=== PATIENT | male | born 1950 | race Caucasian/White ===

== ENCOUNTER 2016-08-02 09:39 | Inpatient (IN) | payer OTHER ==
[~2016-08-02] VITALS: Ht 180.3 cm; Wt 110.3 kg
[~2016-08-02 09:39] MED LIST: ADVAIR DISKU1 INH; AZITHROMYCIN250 MG PO; FUROSEMIDE20 MG PO; METOPROLOL SUCC50 MG PO; MICRO-K 10 EQU10 MEQ PO; O2; OMEPRAZOLE20 MG PO; PREDNISONE20 MG PO; PRINIVIL5 MG PO; TOPROL XL100 MG PO; VENTOLIN HFA IN
--- NOTE | 2016-08-02 11:21 | DIAGNOSTIC IMAGING REPORT ---
PROCEDURE: XR CHEST 2 VIEW INDICATION: SHORTNESS OF BREATH TECHNIQUE: PA and lateral views. COMPARISON: Chest 08/21/2015, chest CT 08/21/2015 FINDINGS: There is a large area of increased parenchymal density at the left lung base with findings suggesting underlying old rib fractures or deformities. Possible new right lower lobe infiltrate. This area was obscured by wires on the previous chest x-ray. Mild cardiomegaly. Mediastinum is normal. The rest of the thorax is normal. IMPRESSION: 1. Large area of parenchymal dense the left lung base with probable rib deformities. While this could represent pneumonia, consider underlying mass or post-traumatic diaphragmatic hernia. 2. No change in the left lung from Chest x-ray and chest CT 08/21/2015 3. Possible new right lower lobe infiltrate. 3. Findings discussed with Dr. Nik Currie
--- NOTE | 2016-08-02 14:21 | DIAGNOSTIC IMAGING REPORT ---
PROCEDURE: CTA THORAX WITH CONTRAST INDICATION: ELEVATED D-DIMER., initial encounter TECHNIQUE: 80 ml of Isovue 370 was injected intravenously and axial images were obtained of the entire thorax with 3D sagittal and coronal MIP reconstructions. COMPARISON: Chest x-ray 08/02/2016 CTA thorax 08/21/2015 FINDINGS: No evidence of pulmonary emboli, aortic dissection or aneurysm. There is no change in the 12 x 12 x 6 cm partially calcified pleural-based density in the left posterior lung base. There are multiple old left rib fractures. There is mild lingular and left lower lobe scarring. No adenopathy or effusion. There is some lipoma ptosis. Heart size is normal. Liver contour irregularity suggestive of cirrhosis. Calcified hepatic and splenic granulomas. Mild degenerative changes of the spine IMPRESSION: 1. No evidence of pulmonary emboli 2. Multiple old left rib fractures with a stable 12 x 12 x 6 cm partially calcified mass in the left posterior lung base. This suggests an old organized hematoma. Malignant mass is unlikely. 3. Liver morphology suggestive of cirrhosis 4. Results discussed Dr. Currie
--- NOTE | 2016-08-02 15:02 | ED ORDER SUMMARY ---
..... Patient: OSMANY COLLAZO OrderSheet [facility] VisitID: [id number] [place] [address] 66y, M Registration Date/Time: 08/02/2016 ORDER SHEET Weight: 113.3 kg (stated) Allergies: No Known Drug Allergy GENERAL ORDERS: Blood Culture (No) (N/A) Urgent (10:08/02/2016 Yahaira LIZAMA) (Ack 10:18 TBergley) (11:08 EHassan R.N.) Chest 2V Urgent (10:08/02/2016 Yahaira LIZAMA) (Ack 10:18 TBergley) (10:50 EHassan R.N.) [employer] Line Worker (Continuous) (10:08/02/2016 Yahaira LIZAMA) (Ack 10:18 TBergley) (10:43 LMuller) Rapid Influenza Screen (Nasal Pharyngeal) (swab) Urgent (10:08/02/2016 Yahaira LIZAMA) (Ack 10:18 TBergley) (10:44 EHassan R.N.) Cardiac Panel Stat (10:08/02/2016 Yahaira LIZAMA) (Ack 10:18 TBergley) (10:44 EHassan R.N.) BNP Urgent (10:08/02/2016 Yahaira LIZAMA) (Ack 10:18 TBergley) (10:44 EHassan R.N.) D-Dimer Urgent (10:08/02/2016 Yahaira LIZAMA) (Ack 10:18 TBergley) (10:44 EHassan R.N.) TSH Urgent (10:08/02/2016 Yahaira LIZAMA) (Ack 10:18 TBergley) (10:44 EHassan R.N.) Lactate, Serum Urgent (10:08/02/2016 Yahaira LIZAMA) (Ack 10:18 TBergley) (10:44 EHassan R.N.) PCT (Procalcitonin) Urgent (10:08/02/2016 Yahaira LIZAMA) (Ack 10:18 TBergley) (10:44 EHassan R.N.) Oxygen (2 L/min) (NC) (10:15 08/02/2016 Yahaira LIZAMA) (Ack 10:18 TBergley) (10:43 LMuller) Pulse oximeter (10:15 08/02/2016 Yahaira LIZAMA) (Ack 10:18 TBergley) (10:43 LMuller) EKG - ER Stat (10:15 08/02/2016 Yahaira LIZAMA) (Ack 10:18 TBergley) (10:43 LMuller) CTA Thorax w Cont (No) (normal) Urgent (12:50 08/02/2016 Yahaira LIZAMA) (Ack 12:52 TBergley) (14:38 LSullivan R.N.) - (Ultrasound guided thoracentesis right chest by radiology.) (16:35 08/02/2016 Yahaira LIZAMA) (Cancelled: Other16:39 TBergley) MEDICATION ORDERS: DuoNeb Neb Tx 1 unit dose (NOW) (10:15 08/02/2016 Yahaira LIZAMA) (10:45 EHassamalcolm R.N.) DuoNeb Neb Tx 1 unit dose (NOW) (12:50 08/02/2016 Yahaira LIZAMA) Nicardipine IV Drip : Bolus 25 mg/10mL, then 5 mg/hr (NOW, To be mixed as infusion); Routine (16:12 08/02/2016 Yahaira LIZAMA) (Cancelled: Other18:27 EHassan R.N.) IV FLUIDS: IV NS : initial bolus none -, then 150 mL/hr for 4h (NOW); Routine (10:14 08/02/2016 Yahaira LIZAMA) (10:55 EHbharathi R.N.) Solu-MEDROL IV 125 mg (NOW) (10:16 08/02/2016 Yahaira LIZAMA) (10:46 Carrie R.N.) Ativan IV 0.5 mg (NOW) (13:12 08/02/2016 Yahaira LIZAMA) (13:17 EHassamalcolm R.N.) Rocephin IV 2 gm/50mL (NOW) (13:47 08/02/2016 Yahaira LIZAMA) (14:41 Paola Barroso.NNina) Zithromax IV 500 mg/250 mL (NOW) (13:47 08/02/2016 Yahaira LIZAMA) (16:36 Carrie Jones) Hydralazine IV 20 mg (NOW) (17:17 08/02/2016 Carrie Jones verbal order read back to [email or web address]) (17:22 Carrie Jones) Dr. Uribe/ Hospitalist ORDER SHEET NOTES: [Electronically signed by Shelby Almendarez R.N. (18:29 08/02/2016)] [Electronically signed by Nik Currie MD (07:49 08/04/2016)] [Electronically locked/signed by Shelby Almendarez R.N. (18:29 08/02/2016)]
--- NOTE | 2016-08-02 15:02 | ED NURSING NOTES ---
Clinical Report - Nurses [facility] [place] [address] [place] [address] 08/02/2016 9:40 Patient: OSMANY COLLAZO TRIAGE Triage time 1008 AM. Acuity: LEVEL 3. Chief Complaint: COUGH, RUNNY NOSE and SORE THROAT. Alert. No acute distress. ALONZO COMA SCORE: Alonzo Coma Scale: 15- eyes open spontaneously (4); best verbal response- oriented x 4 (5); best motor response- obeys commands (6). --10:17 Shelby Almendarez R.N. 10:10 08/02/16. BP: 212/111 taken on the left arm, while sitting. HR: 58. RR: 20. O2 saturation: 85% on room air. Temp: 97.6 F. Pain level now: 0/10. --10:17 Shelby Almendarez R.N. Weight: 113.3 kg stated. Height/Length: 71 inches Per Patient. BMI: 34.9. --10:14 Shelby Almendarez R.N. Medications Lisinopril Oral 5 mg, am. Metoprolol Tartrate Oral 100 mg, am. Mucinex Oral. --10:14 Shelby Almendarez R.N. Omeprazole Oral 20 mg, am. Ventolin HFA Inhalation. --10:14 Shelby Almendarez R.N. Medication/allergy information source: the patient. --10:17 Shelby Almendarez R.N. Allergies No Known Drug Allergy. --10:14 Shelby Almendarez R.N. History Arrived by private vehicle. Historian: patient. Accompanied by family. Primary physician (Dr. Sin). ( Pt states having the Flu like symptoms for about 2 weeks, wheezing and SOB has been getting worst, with dizziness, with fevers of 10/ coughing "yellow flem"). Onset. (2 weeks). He has had chest congestion, chills, fatigue and difficulty breathing. Reports muscle aches. Treatment SQL DATA ANALYST: (inhalor). PAST MEDICAL HX: Immunizations: up-to-date. SOCIAL HX: Former smoker. Regular heavy alcohol use; consumes 12-pack of beer a day. No drug use. No infectious disease exposure. ABUSE ASSESSMENT: No report of abuse. SELF HARM ASSESSMENT: A self harm assessment was performed. The patient answered "no" to the question "Do you have thoughts of harming or killing yourself?" and "Have you recently had thoughts about harming or killing others?". --10:17 Shelby Almendarez R.N. PROBLEMS: Congestive Heart Failure. COPD - Chronic Obstructive Pulmonary Disease. Hypertension. --10:14 Shelby Almendarez R.N. ADDITIONAL SURGERIES: no known surgeries. Interventions ID band on patient. --10:17 Shelby Almendarez R.N. PHYSICAL ASSESSMENT To room via wheelchair. GENERAL / NEURO / PSYCH: Alert. Oriented X 4. Appears in no acute distress. HEENT: Pupils equal, round and reactive to light. Pharynx within normal limits. Voice within normal limits. Mucous membranes are pink. RESPIRATORY: Mild respiratory distress. The patient can speak a few words at a time. Accessory muscle use. Wheezes bilaterally; right lung base posteriorly, mid-lung posteriorly and upper lung posteriorly; left lung base posteriorly, mid-lung posteriorly and upper lung posteriorly. Cough. CVS: Normal sinus rhythm noted. Capillary refill less than 2 seconds and is greater than 2 seconds. EXTREMITIES: No lower extremity edema. SKIN: Skin is warm and dry. Normal skin turgor. Skin turgor is not poor. No skin rash. --10:40 Shelby Almendarez R.N. NURSING PROGRESS NOTES 10:08/02/16. BP: 200/106. HR: 62. RR: 20. O2 saturation: 95%. O2 started via nasal cannula at 2 liters/minute. Pain level now: 0/10. --10:44 Shelby Almendarez R.N. Cardiac rhythm: normal sinus rhythm. The initial plan of care for this patient has been created This plan of care was discussed with the patient and family. Oxygen administered by nasal cannula at 2 liters. nuclear monitoring technician, pulse oximeter and NIBP monitor placed on patient. Patient ID band checked for patient name, birthdate and medical record number: patient confirmed. Blood samples drawn from the right antecubital space peripheral IV site by nurse per protocol ; labeled in presence of the patient and sent to lab: rainbow set. Patient gowned. Warming measures: blanket applied. Reassurance given. Patient ID band checked for patient name, birthdate and medical record number: patient confirmed. Flu swab obtained by RN via nasal swab. Labeled in the presence of the patient and sent to lab. Reassessment after oxygen administered. He has had no adverse reaction. Two patient identifiers checked. Call light placed in reach. Side rails up. Bed placed in lowest position. Brakes of bed on. Brakes of chair on. FALL RISK ASSESSMENT: Fall risk assessment completed. No fall risk identified. --10:44 Shelby Almendarez R.N. 10:10 08/02/2016 Duoneb (Ipratropium-Albuterol) Neb TX Nebulizer 1 unit dose given. Given by the nurse. Allergies verified and confirmed 5 rights. --10:45 Shelby Almendarez R.N. 10:25 08/02/2016 Site #1 started via IV in the right antecubital space with an 20g angiocath; one attempt. Blood drawn: rainbow set. Labeled in the presence of the patient and sent to the lab. Saline lock flushed. --10:46 Shelby Almendarez R.N. 10:41 08/02/2016 SOLU-MEDROL (MethylPREDNISolone Sodium Succ) IVP 125 mg given over 2 minute(s) via site #1. Allergies verified and confirmed 5 rights. IV patency established. IV site checked: no pain, redness, or swelling. IV flushed thoroughly pre- and post-medication administration. IVP given by RN. --10:46 Shelby Almendarez R.N. Patient transported to radiology by stretcher. (1046 AM). --10:48 Shelby Almendarez R.N. 10:15 08/02/16. BP: 161/86. HR: 58. RR: 20. O2 saturation: 100%. O2 started via nasal cannula. Pain level now: 0/10. --10:50 Shelby Almendarez R.N. Cardiac rhythm: normal sinus rhythm. Flu swab obtained. Reassessment after medication administered (post neb treatment). He has had no adverse reaction. Overall patient status is improved- he states feels better. RESPIRATORY: The patient reports cough. Wheezes bilaterally. CVS: Denies chest pain. SKIN: Skin is warm and dry. Skin color is within normal limits for race. --10:50 Shelby Almendarez R.N. 10:54 08/02/2016 Consuelo Jose [place] Response: no adverse reaction symptoms have improved the patient feels better. --10:54 Shelby Almendarez R.N. 10:55 08/02/2016 Started bag #1 1000 mL IV Fluids IV NS (Saline); at 150 mL/hr over 5 hour(s) via site #1 via IV pump. Allergies verified and confirmed 5 rights. IV patency established. IV site checked: no pain, redness, or swelling. IV flushed thoroughly pre- and post-medication administration. Completed per protocol. --10:55 Shelby Almendarez R.N. EKG time: (1043). EKG was performed by a tech and shown to the ED physician. --12:19 Teresa Toro Oxygen administered. nuclear monitoring technician, pulse oximeter and NIBP monitor placed on patient. Reassurance given. Reassessment after oxygen and fluids administered, intervention and medication administered (Neb). Overall patient status is improved- he states feels better. RESPIRATORY: Decreased breath sounds and wheezes bilaterally; abnormal breath sounds right mid-lung posteriorly and upper lung posteriorly; left mid-lung posteriorly and upper lung posteriorly. Patient identifiers checked. Call light placed in reach. Side rails up x 2. Bed placed in lowest position. Brakes of bed on. Brakes of chair on. --13:11 Shelby Almendarez R.N. 13:08 08/02/16. BP: 212/94 (regular adult cuff) taken on the right arm, via an automated monitor, while sitting. HR: 65. RR: 20. O2 saturation: 95%. O2 started via nasal cannula. Temp: 98 F (oral). Pain level now: 0/10. --13:11 Shelby Almendarez R.N. 13:17 08/02/2016 Ativan (LORazepam) IVP 0.5 mg given over 30 second(s) via site #1. Allergies verified, confirmed 5 rights and sedative warning given to the patient. IV patency established. IV site checked: no pain, redness, or swelling. IV flushed thoroughly pre- and post-medication administration. IVP given by RN. --13:17 Shelby Almendarez R.N. ( MD Currie aware of BP of 216's ativan given as ordered, on monitor and on O2). --13:18 Shelby Almendarez R.N. 14:41 08/02/2016 Started 2 gm of Rocephin (CefTRIAXone Sodium) IVPB in bag #1 50 mL; at 150 mL/hr over 20 minute(s) via site #1 via IV pump. Allergies verified and confirmed 5 rights. --14:41 Marla March R.N. 15:00 08/02/2016 Rocephin IVPB Response: no adverse reaction symptoms are the same. The patient feels the same. --15:31 Shelby Almendarez R.N. 15:01 08/02/2016 Rocephin IVPB Discontinued: completed. Total amount infused: 50 mL. IV patency established. IV site checked: no pain, redness, or swelling. IV flushed thoroughly. --15:01 Liz Lazo R.N. 15:05 08/02/2016 Ativan IVP Response: no adverse reaction symptoms have improved. --15:30 Shelby Almendarez R.N. 16:35 08/02/2016 Started 500 mg of Zithromax (Azithromycin) IVPB in bag #1 255 mL; at 255 mL/hr over 1 hour(s) via site #1 via IV pump. Allergies verified and confirmed 5 rights. IV patency established. IV site checked: no pain, redness, or swelling. IV flushed thoroughly pre- and post-medication administration. --16:36 Shelby Almendarez R.N. 16:00 08/02/16. BP: 211/111. HR: 71. RR: 18. O2 saturation: 96%. O2 started via nasal cannula at 3 liters/minute. Pain level now: 0/10. --16:39 Shelby Almendarez R.N. Cardiac rhythm: normal sinus rhythm. nuclear monitoring technician, pulse oximeter and NIBP monitor placed on patient; monitor alarms on. Reassurance given. ( Hospitalist at bedside, aware of BP, azithromyacin infusing as ordered, awaiting on Cardene drip). RESPIRATORY: The patient reports cough. Respiratory distress present. Wheezes bilaterally. SKIN: Skin is warm and dry. Skin color is within normal limits for race. Two patient identifiers checked. Call light placed in reach. Side rails up x 2. Bed placed in lowest position. Brakes of bed on. Brakes of chair on. --16:39 Shelby Almendarez R.N. 17:09 08/02/2016 Site #2 started via IV in the right forearm with an 20g angiocath; one attempt. Saline lock flushed with 10 mL saline. --17:09 Shelby Almendarez R.N. 17:08 08/02/16. BP: 170/98. HR: 67. RR: 18. O2 saturation: 96%. O2 started via nasal cannula at 2 liters/minute. Pain level now: 0/10. --17:10 Shelby Almendarez R.N. Cardiac rhythm: normal sinus rhythm. --17:10 Shelby Almendarez R.N. 17:22 08/02/2016 Hydralazine IVP 20 mg given over 5 minute(s) via site #1. Allergies verified and confirmed 5 rights. IV patency established. IV site checked: no pain, redness, or swelling. IV flushed thoroughly pre- and post-medication administration. IVP given by RN. --17:22 Shelby Almendarez R.N. nuclear monitoring technician, pulse oximeter and NIBP monitor placed on patient. Reassurance given. Reassessment after fluids administered and medication administered (azithro). He is calm and resting quietly and has had no adverse reaction. Overall patient status is improved- he states feels better. ( Spoke to Dr Uribe about the Cardene drip, hold for now due to BP at 170/98, hydralazine 20mg ordered instead. Will monitor). HEENT: Denies sore throat. No hoarseness. RESPIRATORY: The patient reports cough. Respiratory distress present. Wheezes bilaterally. Two patient identifiers checked. Patient waiting for admit bed and treatment bed / room. --17:28 Shelby Almendarez R.N. 17:37 08/02/16. BP: 152/81 (regular adult cuff) taken on the left arm, via an automated monitor, while lying. HR: 73. RR: 20. O2 saturation: 96%. Temp: 98.8 F (oral). Pain level now: 0/10. --17:38 Shelby Almendarez R.N. Reassessment after medication administered. He has had no adverse reaction. --17:38 Shelby Almendarez R.N. 11:28 08/02/2016 SOLU-MEDROL IVP Response: no adverse reaction. --18:28 Shelby Almendarez R.N. 17:03 08/02/2016 Zithromax IVPB Response: no adverse reaction. --18:28 Shelby Almendarez R.N. 17:28 08/02/2016 Zithromax IVPB Discontinued: bag #1 infused. Total amount infused: 255 mL. IV patency established. IV site checked: no pain, redness, or swelling. IV flushed thoroughly. --18:28 Shelby Almendarez R.N. 17:45 08/02/2016 Hydralazine IVP Response: no adverse reaction symptoms have improved the patient feels better. --18:27 Shelby Almendarez R.N. 18:29 08/02/2016 IV Fluids IV NS Response: no adverse reaction symptoms have improved the patient feels better. --18:29 Shelby Almendarez R.N. DISPOSITION / DISCHARGE Cardiac rhythm: normal sinus rhythm. Condition at departure: improved and stable. The goals identified in the patient's plan of care were met. Transported via stretcher by nurse. Report was given to a nurse via a phone call. Report included patient's care, treatment, medications, reviewed medication reconcilliation, and condition (including any recent changes or anticipated changes). All questions were answered. Report was acknowledged and care was transferred. Bed obtained and ready (1730 PM). ( Care transferred to ZACK Aquino). FALL RISK ASSESSMENT: Fall risk assessment completed. No fall risk identified. --18:04 Shelby Almendarez R.N. 17:55 08/02/16. BP: 150/66. HR: 83. RR: 95. O2 saturation: 96%. O2 started via nasal cannula at 3 liters/minute. Temp: 97.8 F. Pain level now: 0/10. --18:04 Shelby Almendarez R.N. 18:01 08/02/2016 Site #2 reassessed; patent and line flushes easily. Good blood return present. Converted to saline lock. Flushed with 10 mL saline. --18:26 Shelby Almendarez R.N. 18:08/02/2016 Site #1 reassessed; infusing well. Good blood return present. --18:26 Shelby Almendarez R.N. Departure time: 1808 PM. ( Transferred safely to CCU 305). --18:26 Shelby Almendarez R.N. Locked/Released at 08/02/2016 18:29 by Shelby Almendarez R.N.
--- NOTE | 2016-08-02 15:02 | ED ORDER SUMMARY ---
..... Patient: OSMANY COLLAZO OrderSheet [facility] VisitID: [id number] [place] [address] 66y, M Registration Date/Time: 08/02/2016 ORDER SHEET Weight: 113.3 kg (stated) Allergies: No Known Drug Allergy GENERAL ORDERS: Blood Culture (No) (N/A) Urgent (10:08/02/2016 Yahaira LIZAMA) (Ack 10:18 TBergley) (11:08 EHassan R.N.) Chest 2V Urgent (10:08/02/2016 Yahaira LIZAMA) (Ack 10:18 TBergley) (10:50 EHassan R.N.) Vessel Master (Continuous) (10:08/02/2016 Yahaira LIZAMA) (Ack 10:18 TBergley) (10:43 LMuller) Rapid Influenza Screen (Nasal Pharyngeal) (swab) Urgent (10:08/02/2016 Yahaira LIZAMA) (Ack 10:18 TBergley) (10:44 EHassan R.N.) Cardiac Panel Stat (10:08/02/2016 Yahaira LIZAMA) (Ack 10:18 TBergley) (10:44 EHassan R.N.) BNP Urgent (10:08/02/2016 Yahaira LIZAMA) (Ack 10:18 TBergley) (10:44 EHassan R.N.) D-Dimer Urgent (10:08/02/2016 Yahaira LIZAMA) (Ack 10:18 TBergley) (10:44 EHassan R.N.) TSH Urgent (10:08/02/2016 Yahaira LIZAMA) (Ack 10:18 TBergley) (10:44 EHassan R.N.) Lactate, Serum Urgent (10:08/02/2016 Yahaira LIZAMA) (Ack 10:18 TBergley) (10:44 EHassan R.N.) PCT (Procalcitonin) Urgent (10:08/02/2016 Yahaira LIZAMA) (Ack 10:18 TBergley) (10:44 EHassan R.N.) Oxygen (2 L/min) (NC) (10:15 08/02/2016 Yahaira LIZAMA) (Ack 10:18 TBergley) (10:43 LMuller) Pulse oximeter (10:15 08/02/2016 Yahaira LIZAMA) (Ack 10:18 TBergley) (10:43 LMuller) EKG - ER Stat (10:15 08/02/2016 Yahaira LIZAMA) (Ack 10:18 TBergley) (10:43 LMuller) CTA Thorax w Cont (No) (normal) Urgent (12:50 08/02/2016 Yahaira LIZAMA) (Ack 12:52 TBergley) (14:38 LSullivan R.N.) - (Ultrasound guided thoracentesis right chest by radiology.) (16:35 08/02/2016 Yahaira LIZAMA) (Cancelled: Other16:39 TBergley) MEDICATION ORDERS: DuoNeb Neb Tx 1 unit dose (NOW) (10:15 08/02/2016 Yahaira LIZAMA) (10:45 EHassamalcolm R.N.) DuoNeb Neb Tx 1 unit dose (NOW) (12:50 08/02/2016 Yahaira LIZAMA) Nicardipine IV Drip : Bolus 25 mg/10mL, then 5 mg/hr (NOW, To be mixed as infusion); Routine (16:12 08/02/2016 Yahaira LIZAMA) (Cancelled: Other18:27 EHassan R.N.) IV FLUIDS: IV NS : initial bolus none -, then 150 mL/hr for 4h (NOW); Routine (10:14 08/02/2016 Yahaira LIZAMA) (10:55 EHbharathi R.N.) Solu-MEDROL IV 125 mg (NOW) (10:16 08/02/2016 Yahaira LIZAMA) (10:46 Carrie R.N.) Ativan IV 0.5 mg (NOW) (13:12 08/02/2016 Yahaira LIZAMA) (13:17 EHassamalcolm R.N.) Rocephin IV 2 gm/50mL (NOW) (13:47 08/02/2016 Yahaira LIZAMA) (14:41 Paola Barroso.NNina) Zithromax IV 500 mg/250 mL (NOW) (13:47 08/02/2016 Yahaira LIZAMA) (16:36 Carrie Jones) Hydralazine IV 20 mg (NOW) (17:17 08/02/2016 Carrie Jones verbal order read back to [email or web address]) (17:22 Carrie Jones) Dr. Uribe/ Hospitalist ORDER SHEET NOTES: [Electronically signed by Shelby Almendarez R.N. (18:29 08/02/2016)] [Electronically signed by Nik Currie MD (07:49 08/04/2016)] [Electronically locked/signed by Shelby Almendarez R.N. (18:29 08/02/2016)]
--- NOTE | 2016-08-02 15:02 | ED CLINICAL REPORT ---
Clinical Report - Physicians/Mid Levels [facility] [address] [place] [address] 08/02/2016 9:40 Patient: OSMANY COLLAZO Time Seen: 10:13 Aug 02 2016. Arrived- By private vehicle. Historian- patient. HISTORY OF PRESENT ILLNESS Chief Complaint: DYSPNEA. 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 The dyspnea is described as moderate and is worsened by walking and exertion, is improved by rest and is improved with oxygen. The patient has had a cough, fever, chills and dyspnea on exertion. He has had moderate amounts of yellow sputum. There has been a change from baseline. (He uses 2 L of oxygen at night but recently has had to use it during the day.). Similar symptoms previously: Recent medical care: Not recently seen/assessed. REVIEW OF SYSTEMS No sore throat or throat, nasal discharge, sinus drainage or nausea. No vomiting, abdominal pain or pain, diarrhea or black stools. No fainting episodes, difficulty with urination or urination or excessive urination. No skin rash or rash, enlarged lymph nodes, joint pain or runny nose. No diarrhea, nausea, vomiting, alteration in mental status or diabetic symptoms. No easy bruising. The patient has had a cough, difficulty breathing and weakness. All systems otherwise negative, except as recorded above. PAST HISTORY Hypertension. COPD. Additional Surgeries: no known surgeries. Medications: Omeprazole Oral 20 mg, am. Ventolin HFA Inhalation. Lisinopril Oral 5 mg, am. Metoprolol Tartrate Oral 100 mg, am. Mucinex Oral. Allergies: No Known Drug Allergy. SOCIAL HISTORY Former smoker. Heavy alcohol use. ADDITIONAL NOTES The nursing notes have been reviewed. PHYSICAL EXAM Vital Signs: 08/02/2016 10:01 BP: 200/106. HR: 62. RR: 20. O2 saturation: 95%. Pain level now: 0/10. Appearance: Alert. Anxious. Patient in moderate distress. Eyes: Eyes normal inspection. ENT: Pharynx normal. Uvula midline. Neck: Normal inspection. CVS: Normal heart rate and rhythm. Heart sounds normal. Pulses normal. Respiratory: Moderate respiratory distress with anxiety and tachypnea. Moderate bilateral wheezes diffusely and posteriorly. Moderate bilateral rhonchi present diffusely. Abdomen: Soft and nontender. Back: Normal inspection. Skin: Skin warm. Normal skin color. No rash. Extremities: Extremities exhibit normal ROM. No calf tenderness. No lower extremity edema. Neuro: Oriented X 3. No motor deficit. No sensory deficit. Reflexes normal. LABS, X-RAYS, AND EKG EKG: Normal EKG. Chest X-ray: (Calcified mass LLL seen [address] chest [address]. No bx recorded after that. Changes in the ROME the same a year ago. Old rib fractures. There is a new infiltrate in the RLL.). Views: PA and lateral. Technique: good. The X-rays were independently viewed by me, interpreted by the radiologist and discussed with the radiologist. Chest CT: No infiltrate, pneumothorax, pleural effusion or pulmonary embolism. (does have evidence of cirrhosis). Chest CT performed without contrast. The study was independently viewed by me, interpreted by the radiologist and discussed with the radiologist. Laboratory Tests: CBC w Diff: (LISA: 08/02/2016 10:40) ( [facility] 08[facility]02[facility] 11:08) Final results Test Result Flag Units (Reference) WHITE BLOOD COUNT 4.8 K/uL (4.5-11.5) RED BLOOD COUNT 5.08 M/uL (4.50-5.90) HEMOGLOBIN 16.8 gm/dL (13.5-17.5) HEMATOCRIT 48.6 % (41.0-53.0) MEAN CELL VOLUME 96 fL (80-100) MEAN CORPUSCULAR HGB 33 pg (26-34) MEAN CORPUSCULAR HGB CONC 35 g/dL (31-37) RED CELL DISTRIBUTION WIDTH 13.5 % (11.6-14.8) PLATELET COUNT 139 L K/uL (150-400) LYMPH % 23.9 L % (25-40) MONO % 8.6 % (3-14) GRANULOCYTE % 67.5 [id number]: (LISA: 08/02/2016 10:40) ( [facility] 08/02/2016 11:14) Final results Test Result Flag Units (Reference) D-DIMER QUANTITATIVE 1.62 H ug/mLFEU (0.27-0.52) The primary value of this quantitative assay relates toits negative predictive value (i.e. exclusion) of pulmonaryembolism/deep vein thrombosis/DIC.Elevated levels of d-dimer may also occur with:, age, cancer, inflammation, liver disease,post-op, infection, hematoma, coronary disease, peripheralarteriopathy, bleeding disorders and thrombolytic treatment.Results should be correlated with other clinical andradiological data.Testing Methodology: Latex Immunoassay BNP: (LISA: 08/02/2016 10:40) ( [facility] 08/02/2016 11:27) Final results Test Result Flag Units (Reference) B-TYPE NATRIURETIC PEPTIDE 443 H pg/ml (5-100) Lactate, Serum: (LSIA: 08/02/2016 10:40) ( [facility] 08/02/2016 11:32) Final results Test Result Flag Units (Reference) LACTIC ACID 1.3 mmol/L (0.4-2.0) [id number]: (LISA: 08/02/2016 10:40) ( [facility] 08/02/2016 11:39) Final results Test Result Flag Units (Reference) PROCALCITONIN <0.5 ng/mL (0-0.5) PCT Concentration: Interpretation : Risk/option for action PCT <=0.5 ng/mL : Systemic : Low risk forinfection(sepsis): progression to severeis not likely. : systemic infection.Local bacterial : CAUTION-PCT levelsinfection is : below 0.5 ng/mL do notpossible. : exclude an infection,because localizedinfections (withoutsystemic signs) may beassociated with suchlow levels. If PCT ismeasured very earlyafter a bacterialchallenge (usually <6hours), these valuesmay still be low. Inthis case PCT shouldbe re-assessed 6-24hours later. PCT >0.5 and : Systemic infection: Moderate risk for<= 2 ng/mL : (sepsis) is : progression to severepossible, but : systemic infection.other conditions : The patient should beare known to : closely monitoredelevate PCT. : both clinically andby re-assessing PCTwithin 6-24 hours. PCT > 2 ng/mL : Systemic infection: High risk for(sepsis) is likely: progression to severeunless other : systemic infection.causes are known. : PCT >= 10 ng/mL : Important systemic: High likelihood ofinflammatory : severe sepsis orresponse, almost : septic shock.exclusively due to:severe bacterial :sepsis or septic :shock. : CHEM 13 PANEL: (LISA: 08/02/2016 10:40) ( [facility] 08/02/2016 11:45) Final results Test Result Flag Units (Reference) GLUCOSE 100 mg/dL (70-110) BUN 14 mg/dL (7-18) CREATININE 1.1 mg/dL (0.6-1.3) Estimated GFR >60 mL/min Estimated GFR- >60 mL/min Note: Persistent reduction over 3 months in eGFR<60 mL/min/1.73 m2 defines CKD. Patients with eGFR values>=60 mL/min/1.73 m2 may also have CKD if evidence ofpersistent proteinuria. Additional information may be foundat [email or web address]. SODIUM 129 L mmol/L (136-145) POTASSIUM 4.0 mmol/L (3.5-5.1) CHLORIDE 94 L mmol/L (98-107) CARBON DIOXIDE 32 mmol/L (21-32) CALCIUM 8.1 L mg/dL (8.5-10.1) TOTAL PROTEIN 7.7 g/dL (6.4-8.2) ALBUMIN 3.4 g/dL (3.3-5.0) BILIRUBIN, TOTAL 0.6 mg/dL (0.0-1.0) ALKALINE PHOSPHATASE 128 H U/L (46-116) AST (SGOT) 53 H U/L (15-37) ALT (SGPT) 46 U/L (12-78) CPK 100 U/L (24-260) MAGNESIUM 1.5 L mg/dL (1.8-2.4) TROPONIN I <0.05 ng/mL (0.00-1.5) TROPONIN REFERENCE RANGE:<0.1 NEGATIVE0.1-1.5 INDETERMINANT>1.5 POSITIVE THYROID STIMULATING HORMONE 0.733 uIU/mL (0.30-3.74) Rapid Influenza Screen: (LISA: 08/02/2016 10:40) ( Msg[facility]cvd 08/02/2016 11:51) Final results SPECIMEN DESCRIPTION: SWAB Test Result Flag Units (Reference) RAPID INFLUENZA SCREEN DATE: 08/02/16 INFLUENZA A: NEGATIVE SCREEN FOR INFLUENZA A INFLUENZA B: NEGATIVE SCREEN FOR INFLUENZA B . PROGRESS AND PROCEDURES Course of Care: IV NS. Blood cultures 2. DuoNeb hand-held nebulizer 2. Solu-Medrol 125 mg IV Ativan 0.5 mg IV for hypertension Rocephin 2 g IV and Zithromax 500 mg IV and influenza screens negative. Patient's d-dimer is elevated so CT angiogram ordered. 14:25 08/02/16. CT angiogram negative for pulmonary emboli and there is no evidence of pulmonary infiltrate. There is evidence of an old calcified hematoma in the left lower lobe. 07:46 08/04/16. Patient slow to respond meds will need to be admitted for further treatment of exacerbation of COPD. Discussed case with on-call health care provider, (Rony). Reviewed test results. Agreed upon treatment plan. Health care provider will see patient in ED. Patient/family counseled. Old medical records ordered. Disposition orders written. Disposition: Admitted to Acute Care. CLINICAL IMPRESSION Acute exacerbation of COPD (emphysematous) Uncontrolled essential hypertension. Hypoxia. (Electronically signed by Nik Currie MD 08/04/2016 7:49)
--- NOTE | 2016-08-02 15:02 | ED CLINICAL REPORT ---
Clinical Report - Physicians/Mid Levels [facility] [address] [place] [address] 08/02/2016 9:40 Patient: OSMANY COLLAZO Time Seen: 10:13 Aug 02 2016. Arrived- By private vehicle. Historian- patient. HISTORY OF PRESENT ILLNESS Chief Complaint: DYSPNEA. 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 The dyspnea is described as moderate and is worsened by walking and exertion, is improved by rest and is improved with oxygen. The patient has had a cough, fever, chills and dyspnea on exertion. He has had moderate amounts of yellow sputum. There has been a change from baseline. (He uses 2 L of oxygen at night but recently has had to use it during the day.). Similar symptoms previously: Recent medical care: Not recently seen/assessed. REVIEW OF SYSTEMS No sore throat or throat, nasal discharge, sinus drainage or nausea. No vomiting, abdominal pain or pain, diarrhea or black stools. No fainting episodes, difficulty with urination or urination or excessive urination. No skin rash or rash, enlarged lymph nodes, joint pain or runny nose. No diarrhea, nausea, vomiting, alteration in mental status or diabetic symptoms. No easy bruising. The patient has had a cough, difficulty breathing and weakness. All systems otherwise negative, except as recorded above. PAST HISTORY Hypertension. COPD. Additional Surgeries: no known surgeries. Medications: Omeprazole Oral 20 mg, am. Ventolin HFA Inhalation. Lisinopril Oral 5 mg, am. Metoprolol Tartrate Oral 100 mg, am. Mucinex Oral. Allergies: No Known Drug Allergy. SOCIAL HISTORY Former smoker. Heavy alcohol use. ADDITIONAL NOTES The nursing notes have been reviewed. PHYSICAL EXAM Vital Signs: 08/02/2016 10:01 BP: 200/106. HR: 62. RR: 20. O2 saturation: 95%. Pain level now: 0/10. Appearance: Alert. Anxious. Patient in moderate distress. Eyes: Eyes normal inspection. ENT: Pharynx normal. Uvula midline. Neck: Normal inspection. CVS: Normal heart rate and rhythm. Heart sounds normal. Pulses normal. Respiratory: Moderate respiratory distress with anxiety and tachypnea. Moderate bilateral wheezes diffusely and posteriorly. Moderate bilateral rhonchi present diffusely. Abdomen: Soft and nontender. Back: Normal inspection. Skin: Skin warm. Normal skin color. No rash. Extremities: Extremities exhibit normal ROM. No calf tenderness. No lower extremity edema. Neuro: Oriented X 3. No motor deficit. No sensory deficit. Reflexes normal. LABS, X-RAYS, AND EKG EKG: Normal EKG. Chest X-ray: (Calcified mass LLL seen [address]. No bx recorded after that. Changes in the ROME the same a year ago. Old rib fractures. There is a new infiltrate in the RLL.). Views: PA and lateral. Technique: good. The X-rays were independently viewed by me, interpreted by the radiologist and discussed with the radiologist. Chest CT: No infiltrate, pneumothorax, pleural effusion or pulmonary embolism. (does have evidence of cirrhosis). Chest CT performed without contrast. The study was independently viewed by me, interpreted by the radiologist and discussed with the radiologist. Laboratory Tests: CBC w Diff: (LISA: 08/02/2016 10:40) ( [facility] 08/02/[place] 11:08) Final results Test Result Flag Units (Reference) WHITE BLOOD COUNT 4.8 K/uL (4.5-11.5) RED BLOOD COUNT 5.08 M/uL (4.50-5.90) HEMOGLOBIN 16.8 gm/dL (13.5-17.5) HEMATOCRIT 48.6 % (41.0-53.0) MEAN CELL VOLUME 96 fL (80-100) MEAN CORPUSCULAR HGB 33 pg (26-34) MEAN CORPUSCULAR HGB CONC 35 g/dL (31-37) RED CELL DISTRIBUTION WIDTH 13.5 % (11.6-14.8) PLATELET COUNT 139 L K/uL (150-400) LYMPH % 23.9 L % (25-40) MONO % 8.6 % (3-14) GRANULOCYTE % 67.5 [id number]: (LISA: 08/02/2016 10:40) ( [facility] 08/02/2016 11:14) Final results Test Result Flag Units (Reference) D-DIMER QUANTITATIVE 1.62 H ug/mLFEU (0.27-0.52) The primary value of this quantitative assay relates toits negative predictive value (i.e. exclusion) of pulmonaryembolism/deep vein thrombosis/DIC.Elevated levels of d-dimer may also occur with:, age, cancer, inflammation, liver disease,post-op, infection, hematoma, coronary disease, peripheralarteriopathy, bleeding disorders and thrombolytic treatment.Results should be correlated with other clinical andradiological data.Testing Methodology: Latex Immunoassay BNP: (LISA: 08/02/2016 10:40) ( [facility] 08/02/2016 11:27) Final results Test Result Flag Units (Reference) B-TYPE NATRIURETIC PEPTIDE 443 H pg/ml (5-100) Lactate, Serum: (LISA: 08/02/2016 10:40) ( [facility] 08/02/2016 11:32) Final results Test Result Flag Units (Reference) LACTIC ACID 1.3 mmol/L (0.4-2.0) [id number]: (LISA: 08/02/2016 10:40) ( [facility] 08/02/2016 11:39) Final results Test Result Flag Units (Reference) PROCALCITONIN <0.5 ng/mL (0-0.5) PCT Concentration: Interpretation : Risk/option for action PCT <=0.5 ng/mL : Systemic : Low risk forinfection(sepsis): progression to severeis not likely. : systemic infection.Local bacterial : CAUTION-PCT levelsinfection is : below 0.5 ng/mL do notpossible. : exclude an infection,because localizedinfections (withoutsystemic signs) may beassociated with suchlow levels. If PCT ismeasured very earlyafter a bacterialchallenge (usually <6hours), these valuesmay still be low. Inthis case PCT shouldbe re-assessed 6-24hours later. PCT >0.5 and : Systemic infection: Moderate risk for<= 2 ng/mL : (sepsis) is : progression to severepossible, but : systemic infection.other conditions : The patient should beare known to : closely monitoredelevate PCT. : both clinically andby re-assessing PCTwithin 6-24 hours. PCT > 2 ng/mL : Systemic infection: High risk for(sepsis) is likely: progression to severeunless other : systemic infection.causes are known. : PCT >= 10 ng/mL : Important systemic: High likelihood ofinflammatory : severe sepsis orresponse, almost : septic shock.exclusively due to:severe bacterial :sepsis or septic :shock. : CHEM 13 PANEL: (LISA: 08/02/2016 10:40) ( MsgRcvd 08/02/2016 11:45) Final results Test Result Flag Units (Reference) GLUCOSE 100 mg/dL (70-110) BUN 14 mg/dL (7-18) CREATININE 1.1 mg/dL (0.6-1.3) Estimated GFR >60 mL/min Estimated GFR- >60 mL/min Note: Persistent reduction over 3 months in eGFR<60 mL/min/1.73 m2 defines CKD. Patients with eGFR values>=60 mL/min/1.73 m2 may also have CKD if evidence ofpersistent proteinuria. Additional information may be foundat [email or web address].org. SODIUM 129 L mmol/L (136-145) POTASSIUM 4.0 mmol/L (3.5-5.1) CHLORIDE 94 L mmol/L (98-107) CARBON DIOXIDE 32 mmol/L (21-32) CALCIUM 8.1 L mg/dL (8.5-10.1) TOTAL PROTEIN 7.7 g/dL (6.4-8.2) ALBUMIN 3.4 g/dL (3.3-5.0) BILIRUBIN, TOTAL 0.6 mg/dL (0.0-1.0) ALKALINE PHOSPHATASE 128 H U/L (46-116) AST (SGOT) 53 H U/L (15-37) ALT (SGPT) 46 U/L (12-78) CPK 100 U/L (24-260) MAGNESIUM 1.5 L mg/dL (1.8-2.4) TROPONIN I <0.05 ng/mL (0.00-1.5) TROPONIN REFERENCE RANGE:<0.1 NEGATIVE0.1-1.5 INDETERMINANT>1.5 POSITIVE THYROID STIMULATING HORMONE 0.733 uIU/mL (0.30-3.74) Rapid Influenza Screen: (LISA: 08/02/2016 10:40) ( MsgRcvd 08/02/2016 11:51) Final results SPECIMEN DESCRIPTION: SWAB Test Result Flag Units (Reference) RAPID INFLUENZA SCREEN DATE: 08/02/16 INFLUENZA A: NEGATIVE SCREEN FOR INFLUENZA A INFLUENZA B: NEGATIVE SCREEN FOR INFLUENZA B . PROGRESS AND PROCEDURES Course of Care: IV NS. Blood cultures 2. DuoNeb hand-held nebulizer 2. Solu-Medrol 125 mg IV Ativan 0.5 mg IV for hypertension Rocephin 2 g IV and Zithromax 500 mg IV and influenza screens negative. Patient's d-dimer is elevated so CT angiogram ordered. 14:25 08/02/16. CT angiogram negative for pulmonary emboli and there is no evidence of pulmonary infiltrate. There is evidence of an old calcified hematoma in the left lower lobe. 07:46 08/04/16. Patient slow to respond meds will need to be admitted for further treatment of exacerbation of COPD. Discussed case with on-call health care provider, (Rony). Reviewed test results. Agreed upon treatment plan. Health care provider will see patient in ED. Patient/family counseled. Old medical records ordered. Disposition orders written. Disposition: Admitted to Acute Care. CLINICAL IMPRESSION Acute exacerbation of COPD (emphysematous) Uncontrolled essential hypertension. Hypoxia. (Electronically signed by Nik Currie MD 08/04/2016 7:49)
--- NOTE | 2016-08-02 18:15 | NUR ---
Received patient to floor from ED via gurney. Patient able to stand and pivot from gurney to bed. Patient made comfortable and vital signs taken. Will continue to monitor patient.
[2016-08-02 18:43] VITALS: BP 149/78
[2016-08-02 19:02] VITALS: BP 171/78
--- NOTE | 2016-08-02 19:32 | History & Physical Report ---
Admission Admit Date 08/02/16 Information Source Information Source: Self, Spouse/Partner History Chief Complaint shortness of breath History of Present Illness Patient is a 66 year old male with a pmh of copd and hypertension that is presenting with a 1 week history of shortness of breath not improved with medicaiton. Patient had been in his usual state of health when he developed what he thought to be a cold one month prior. He was able to fight the cold and improve. Howeve in the past week he noticed that his cold symptoms were returning and he was having an increased level of difficulty of breathing. Patients medications did not work anymore and patient became worried and came to the ER. Patient is stable and will be admitte.d Patient History 1. COPD exacerbation 2. Hypertension 3. Bronchitis Social History pt is an ex smoker pt drinks every day according to no illicit drug use Pt currently lives at home with his Medications and Allergies Medications Current Medications Sig/Nestor Start time Last Medication Dose Route Stop Time Status Admin Metoprolol Succinate 100 MG DAILY 08/03 0900 AC PO Pantoprazole Sodium 40 MG DAILY@0600 08/03 0600 AC Sesquihydrate PO Methylprednisolone 80 MG Q8HR 08/02 2200 AC Sodium Succinate IV Furosemide 20 MG DIUB 08/02 2100 AC PO Lisinopril 5 MG DAILY 08/02 2000 AC PO Albuterol/Ipratropium 3 ML RTQ4H PRN 08/02 1900 AC IN Allergies Coded Allergies: NKA (08/21/15) Review of Systems Constitutional Fever, Weakness, Malaise. Denies: Chills, Sweats, Other. Eyes Denies: Pain, Vision Change, Conjunctival Inflammation, Eyelid Inflammation, Redness, Other. ENT Denies: Ear Pain, Ear Discharge, Nose Pain, Nasal Discharge, Nasal Congestion, Mouth Pain, Mouth Swelling, Throat Pain, Throat Swelling, Other. Respiratory Cough, SOB w/exertion, Pleuritic Pain. Denies: Wheezing, Hemoptysis. Cardiovascular Denies: Chest Pain, Palpitations, Orthopnea, PND, Edema, Light-headedness, Other. Gastrointestinal Denies: Nausea, Vomiting, Abdominal Pain, Diarrhea, Constipation, Melena, Hematochezia, Other. Genitourinary Denies: Dysuria, Frequency, Incontinence, Hematuria, Retention, Other. Musculoskeletal Denies: Neck Pain, Shoulder Pain, Arm Pain, Back Pain, Hand Pain, Leg Pain, Foot Pain, Other. Skin Denies: Rash, Lesions, Jaundice, Bruising, Other. Neurological Denies: Weakness, Numbness, Incoordination, Change in speech, Confusion, Seizures, Other. Physical Exam Vital Signs / I&Os Vital Signs Date Time Temp Pulse Resp B/P Pulse O2 O2 Flow FiO2 Ox Delivery Rate 08/02 1902 78 22 171/78 94 Nasal 3.0 Cannula 08/02 1843 98.8 83 25 149/78 95 Nasal 3.0 Cannula 08/02 1300 1.5 General Appearance Alert, Oriented X3, No acute distress HEENT PERRLA, EOMI, Moist mucous membranes Lungs Clear to auscultation, Normal air movement Neck No JVD, No thyromegaly, No lymphadenopathy Cardiovascular Normal S1 and S2, No murmurs, gallops, rubs Abdomen Soft, No rebound, No masses, No hepatosplenomegaly Extremities No edema, Normal pulses, No tenderness, Strength = upper ext's, Strength = lower ext's Skin No Breakdown, No Significant Lesions Neurological Normal gait, Normal speech, Sensation intact Psych/Mental Status Mood normal, Confused LAB Results Laboratory Tests 08/02 08/02 08/02 08/02 1015 1040 1040 1040 Chemistry Plasma Sodium (136 - 145 mmol/L) 129 Plasma Potassium (3.5 - 5.1 mmol/L) 4.0 Plasma Chloride (98 - 107 mmol/L) 94 CO2 (Enzymatic) (21 - 32 mmol/L) 32 BUN (7 - 18 mg/dL) 14 Creatinine (0.6 - 1.3 mg/dL) 1.1 Est GFR ( Amer) (mL/min) >60 Est GFR (Non-Af Amer) (mL/min) >60 Glucose (70 - 110 mg/dL) 100 Lactic Acid (0.4 - 2.0 mmol/L) 1.3 Plasma Calcium (8.5 - 10.1 mg/dL) 8.1 Plasma Magnesium (1.8 - 2.4 mg/dL) 1.5 Total Bilirubin (0.0 - 1.0 mg/dL) 0.6 AST (15 - 37 U/L) 53 ALT (12 - 78 U/L) 46 Alkaline Phosphatase (46 - 116 U/L) 128 Creatine Kinase (24 - 260 U/L) 100 Troponin (0.00 - 1.5 ng/mL) <0.05 B-Natriuretic Peptide (5 - 100 pg/ml) 443 Total Protein (6.4 - 8.2 g/dL) 7.7 Albumin (3.3 - 5.0 g/dL) 3.4 TSH 3rd Generation (0.30 - 3.74 uIU/mL) Cancelled 0.733 Coagulation D-Dimer, Quantitative (0.27 - 0.52 ug/mLFEU) 1.62 Hematology WBC (4.5 - 11.5 K/uL) 4.8 RBC (4.50 - 5.90 M/uL) 5.08 Hgb (13.5 - 17.5 gm/dL) 16.8 Hct (41.0 - 53.0 %) 48.6 MCV (80 - 100 fL) 96 MCH (26 - 34 pg) 33 RDW (11.6 - 14.8 %) 13.5 Gran % 67.5 Lymph % (Auto) (25 - 40 %) 23.9 [place] % (Auto) (3 - 14 %) 8.6 Plt Count, EDTA (150 - 400 K/uL) 139 PUBS MCHC (31 - 37 g/dL) 35 08/02 08/03 1040 0415 Chemistry Plasma Sodium (136 - 145 mmol/L) 135 Plasma Potassium (3.5 - 5.1 mmol/L) 4.0 Plasma Chloride (98 - 107 mmol/L) 97 CO2 (Enzymatic) (21 - 32 mmol/L) 27 BUN (7 - 18 mg/dL) 16 Creatinine (0.6 - 1.3 mg/dL) 1.0 Est GFR ( Amer) (mL/min) >60 Est GFR (Non-Af Amer) (mL/min) >60 Glucose (70 - 110 mg/dL) 133 Plasma Calcium (8.5 - 10.1 mg/dL) 8.5 Plasma Magnesium (1.8 - 2.4 mg/dL) 1.4 Total Bilirubin (0.0 - 1.0 mg/dL) 0.5 AST (15 - 37 U/L) 63 ALT (12 - 78 U/L) 60 Alkaline Phosphatase (46 - 116 U/L) 125 Total Protein (6.4 - 8.2 g/dL) 7.3 Albumin (3.3 - 5.0 g/dL) 3.2 Procalcitonin (0 - 0.5 ng/mL) <0.5 Hematology WBC (4.5 - 11.5 K/uL) 3.2 RBC (4.50 - 5.90 M/uL) 4.87 Hgb (13.5 - 17.5 gm/dL) 15.7 Hct (41.0 - 53.0 %) 46.5 MCV (80 - 100 fL) 95 MCH (26 - 34 pg) 32 RDW (11.6 - 14.8 %) 13.9 Neut % (Auto) (50 - 75 %) 83.7 Lymph % (Auto) (25 - 40 %) 13.8 [place] % (Auto) (3 - 14 %) 2.2 Eos % (Auto) (0 - 4 %) 0 Baso % (Auto) (0 - 2 %) 0.3 Plt Count, EDTA (150 - 400 K/uL) 135 PUBS MCHC (31 - 37 g/dL) 34 Microbiology Date/Time Procedure - Status Source Growth 08/02 1105 Blood Culture - RECD BLOOD 08/02 1040 Influenza Screen - COMP NASALPHAR Assessment and Plan Problem List 1. COPD exacerbation Plan - pt has an existing diagnosis of copd - will provide steroids and around the clock duonebs - will monitor for improvement - anticipated dc in 1-2 days 2. Bronchitis Plan - pt has evidence of bronchitis from infectious etiology - will provide antibiotics for this - daily blood work 3. Hypertension Plan - pt upon arrival was seen to have uncontrolled hypertension - pt on arrival was seen to be - pt restarted on home medications - will continue to monitor for hypertensive episodes
[2016-08-02 20:13] VITALS: BP 160/73
[2016-08-02 21:16] VITALS: BP 172/90
[2016-08-02 22:10] VITALS: BP 177/89
[2016-08-02 23:16] VITALS: BP 161/79
[2016-08-03] VITALS (16 sets, daily range): BP systolic 121–183; BP diastolic 62–99
--- NOTE | 2016-08-03 04:24 | NUR ---
A/Ox4, SR 70-80, infrequent PAC's, SBP 150-160, heart rate dropped momentarily to 40-50 SB then returns to 80's, pt has undiagnosed sleep apnea, where he snores, fitful, talks in sleep, 02 sats always remain 95-97%, currently on 3L n/c, independently for bed mobility and using the urinal.
--- NOTE | 2016-08-03 17:26 | NUR ---
Patient is breathing much easier today. Is able to ambulate to the bathroom and is very steady on his feet. Patient is tolerating light exertion without being short of breath. Patient became very lethargic, orders received from Dr. Uribe for end-tidal co monitoring and ABG. aware that patient has refused SCD's. No complaints of pain, nausea, or vomiting. Patient pleasant and cooperative with care. Will continue to monitor patient.
--- NOTE | 2016-08-03 18:28 | Progress Note ---
Subjective General Pt seen and examined, patient is much more improved than compared to the day prior. Patient still has wheezes bilaterally however there is improved air exchange Constitutional Denies: Fever, Chills, Sweats, Weakness, Malaise, Other. Eyes Denies: Pain, Vision Change, Conjunctival Inflammation, Eyelid Inflammation, Redness, Other. ENT Denies: Ear Pain, Ear Discharge, Nose Pain, Nasal Discharge, Nasal Congestion, Mouth Pain, Mouth Swelling, Throat Pain, Throat Swelling, Other. Respiratory Cough, SOB w/exertion, Wheezing. Denies: Dry, Hemoptysis, Pleuritic Pain, Sputum. Cardiovascular Denies: Chest Pain, Palpitations, Orthopnea, PND, Edema, Light-headedness, Other. Gastrointestinal Denies: Nausea, Vomiting, Abdominal Pain, Diarrhea, Constipation, Melena, Hematochezia, Other. Genitourinary Denies: Dysuria, Frequency, Incontinence, Hematuria, Retention, Other. Musculoskeletal Denies: Neck Pain, Shoulder Pain, Arm Pain, Back Pain, Hand Pain, Leg Pain, Foot Pain, Other. Skin Denies: Rash, Lesions, Jaundice, Bruising, Other. Neurological Denies: Weakness, Numbness, Incoordination, Change in speech, Confusion, Seizures, Other. Physical Exam Vital Signs / I&Os Vital Signs Date Time Temp Pulse Resp B/P Pulse O2 O2 Flow FiO2 Ox Delivery Rate 08/03 1800 73 20 97 2.0 08/03 1510 88 24 136/65 96 Nasal 3.0 Cannula 08/03 1400 80 19 133/70 97 Nasal 3.0 Cannula 08/03 1300 90 23 131/66 96 Nasal 3.0 Cannula 08/03 1250 2.0 08/03 1200 98.4 69 17 121/72 93 Nasal 3.0 Cannula 08/03 1127 98.8 75 17 141/64 97 Nasal 3.0 Cannula 08/03 1000 86 20 96 Nasal 3.0 Cannula 08/03 0951 3.0 08/03 0900 183/76 08/03 0900 95 23 95 Nasal 3.0 Cannula 08/03 0815 Nasal 3.0 Cannula 08/03 0800 78 20 183/76 96 Nasal 3.0 Cannula 08/03 0730 3.0 08/03 0700 98.1 78 19 170/97 96 Nasal 3.0 Cannula 08/03 0600 84 22 167/95 95 Nasal 3.0 Cannula 08/03 0500 87 20 143/99 96 Nasal 3.0 Cannula 08/03 0414 91 15 166/79 97 Nasal 3.0 Cannula 08/03 0300 81 17 159/98 94 Nasal 3.0 Cannula 08/03 0200 97.5 81 18 152/87 95 Nasal 3.0 Cannula 08/03 0110 77 21 145/82 95 Nasal 3.0 Cannula 08/03 0009 85 20 168/83 95 Nasal 3.0 Cannula 08/02 2316 90 20 161/79 94 Nasal 3.0 Cannula 08/02 2251 3.0 08/02 2210 98.1 94 24 177/89 95 Nasal 3.0 Cannula 08/02 2143 3.0 08/02 2116 98.4 08/02 2116 75 20 172/90 95 Nasal 2.0 Cannula 08/02 2105 2.0 08/02 2105 Nasal 2.0 Cannula 08/02 2013 85 22 160/73 98 Nasal 3.0 Cannula 08/02 1902 78 22 171/78 94 Nasal 3.0 Cannula 08/02 1843 98.8 83 25 149/78 95 Nasal 3.0 Cannula I&O 08/02 0800 08/02 1600 08/03 0000 Intake Total Output Total 525 Balance -525 General Appearance Alert, Oriented X3, No acute distress HEENT Normal exam, Atraumatic, PERRLA, Moist mucous membranes Lungs Clear to auscultation, Normal air movement Neck Supple, No JVD, No thyromegaly Cardiovascular Regular rate and rhythm, Normal S1 and S2 Abdomen Soft, No tenderness, No guarding, No rebound, No masses Extremities No cyanosis, Normal pulses, No tenderness Skin No Rashes, No Breakdown, No Significant Lesions LAB Results Laboratory Tests 08/03 08/03 UNK 0415 Blood Gas Sample Site LR Total CO2 (24.0 - 30.0 mmol/L) 29.8 ABG pH (7.35 - 7.45) 7.43 ABG pCO2 at Pt Temp (35 - 45 mmHg) 43.1 ABG pO2 at Pt Temp (60.0 - 80.0 mmHg) 72.3 ABG HCO3 (20.0 - 26.0 mmol/L) 28.5 ABG O2 Sat Calc/Lindsey (95.1 - 100.0 %) 95.1 ABG Base Excess (-6.0 - -6.0 mmol/L) 3.7 ABG Reduced Hgb (%) 4.8 ABG Carboxyhemoglobin (0.5 - 1.5 %) 1.2 ABG Methemoglobin (0.4 - 1.5 %) 0.0 Sina Test YES Other Total Hgb (14.0 - 18.0 g/dL) 16.4 A-a O2 Gradient (7.0 - 14.0 mmHg) 82.2 Hgb O2 Saturation (95.0 - 100.0 %) 94.0 Respiration Rate (/MIN) 20 O2 Liters/Min (0 - 20 L/MIN) 2 Vent Mode NC FiO2 (20 - 101 %) 0.28 Chemistry Plasma Sodium (136 - 145 mmol/L) 135 Plasma Potassium (3.5 - 5.1 mmol/L) 4.0 Plasma Chloride (98 - 107 mmol/L) 97 CO2 (Enzymatic) (21 - 32 mmol/L) 27 BUN (7 - 18 mg/dL) 16 Creatinine (0.6 - 1.3 mg/dL) 1.0 Est GFR ( Amer) (mL/min) >60 Est GFR (Non-Af Amer) (mL/min) >60 Glucose (70 - 110 mg/dL) 133 Plasma Calcium (8.5 - 10.1 mg/dL) 8.5 Plasma Magnesium (1.8 - 2.4 mg/dL) 1.4 Total Bilirubin (0.0 - 1.0 mg/dL) 0.5 AST (15 - 37 U/L) 63 ALT (12 - 78 U/L) 60 Alkaline Phosphatase (46 - 116 U/L) 125 Total Protein (6.4 - 8.2 g/dL) 7.3 Albumin (3.3 - 5.0 g/dL) 3.2 Hematology WBC (4.5 - 11.5 K/uL) 3.2 RBC (4.50 - 5.90 M/uL) 4.87 Hgb (13.5 - 17.5 gm/dL) 15.7 Hct (41.0 - 53.0 %) 46.5 MCV (80 - 100 fL) 95 MCH (26 - 34 pg) 32 RDW (11.6 - 14.8 %) 13.9 Neut % (Auto) (50 - 75 %) 83.7 Lymph % (Auto) (25 - 40 %) 13.8 [place] % (Auto) (3 - 14 %) 2.2 Eos % (Auto) (0 - 4 %) 0 Baso % (Auto) (0 - 2 %) 0.3 Plt Count, EDTA (150 - 400 K/uL) 135 PUBS MCHC (31 - 37 g/dL) 34 Assessment and Plan Problem List 1. COPD exacerbation Plan - pt has evidence of copd exacerbation with underlying infection - will continue with current steroid dose - will consider taper tomorrow if patient is absent of wheezes - c/w duonebs scheduled 2. Bronchitis Plan - pt has evidence of an upper respiratory infection - will continue with azithromycin and ceftriaxone - will continue to trend blood work 3. Acute exacerbation of chronic obstructive pulmonary disease (COPD) 4. Hypertension Plan - pt has been hypertensive during the morning time - will add hydralazine to patients medication regimen - will continue with home anti hypertensive - toprol xl switched to metoprolol succinate
[2016-08-04 02:28] VITALS: BP 150/85
[2016-08-04 06:58] VITALS: BP 153/91
--- NOTE | 2016-08-04 07:51 | ED DISCHARGE INSTRUCTIONS ---
Patient: OSMANY COLLAZO General Instructions [facility] VisitID: [id number] [place] [address] 66y, M Registration Date/Time: 08/02/2016 Acute exacerbation of COPD (emphysematous) Uncontrolled essential hypertension. Hypoxia. ADDITIONAL INFORMATION COPD Flare Both emphysema and chronic bronchitis are forms of chronic obstructive pulmonary disease (COPD). It is most often caused by many years of smoking tobacco. Many things can make your lung disease suddenly get worse. These causes include the common cold, pneumonia, acute bronchitis, missing doses of your regular breathing medicines, or being around smoke, dust, or other air pollutants. A COPD flare may last 7 to 14 days. Your doctor may prescribe medicineto relax your airways and prevent wheezing. Your doctor may also prescribe antibiotics if he or she thinks you havea bacterial infection. Prednisone can helpease inflammation in a severe attack. Home care Here are things you can do at home: Drink lots of water or other fluids (at least 10 glasses a day) during an attack. This will loosen lung secretions and make it easier to breathe. If you have heart or kidney disease, check with your doctor before you drink extra amounts of fluids. Take prescribed medicine exactly at the times advised. If you have a hand-held inhaler or aerosol breathing medicine, don't use it more than once every 4 hours, unless your doctor tells you to. If you were givenan antibiotic or prednisone, take all of the medicine even if you are feeling better after a few days. Don't smoke. Avoid being aroundthe smoke of others. If you were given an inhaler, use it exactly as directed. If you need to use it more often than prescribed, your condition may be getting worse. Call your doctor. Follow-up care Follow up with your health care provider.If you are 65 or older or have chronic asthma or COPD, you should get a single dose of the pneumococcal vaccine and aflu shot each year. You may need a second dose of the pneumococcal vaccine if you had the first dose at a younger age. Your health care provider will let you know if you need a second dose. For all other people, the usual dose for the pneumococcal vaccine is 1 or 2 shots. Yourprovider can discuss this with you. When to seek medical care Get prompt medical attention ifany of these occur: Increased wheezing or shortness of breath Need to use your inhalers more often than usual without relief Fever of 100.4F(38C) or higher, or as directed by your health care provider Coughing up lots of dark-colored or bloody sputum (mucus) Chest pain with each breath You do not start to improve within 24 hours High Blood Pressure --Established High Blood Pressure (Hypertension) is a chronic disease. The cause is unknown in most cases. It can usually be controlled with lifestyle changes and/or medicines. Symptoms of high blood pressure may include headache, dizziness, visual changes, chest pain and shortness of breath. Sometimes it causes no symptoms at all. However, even if there are no symptoms, untreated high blood pressure increases the risk of heart attack, also known as acute myocardial infarction, or AMI, and stroke. It is a serious health risk and should not be ignored. A normal blood pressure is 120/80 or less. The first (top) number is the "systolic" pressure. The second (bottom) number is the "diastolic" pressure. Hypertension exists when either the top number is 140 or higher, OR the bottom number is 90 or higher on repeated measurements. Home Care: All patients with high blood pressure should do the following to lower their pressure. If you are on medicines, then these methods may reduce or eliminate your need for medicines in the future. Begin a weight loss program if you are overweight. Reduce your salt intake. Avoid high salt foods (olives, pickles, smoked meats, salted potato chips, etc.). Do not add salt to your food at the table. Use only small amounts of salt when cooking. Begin an exercise program. Discuss with your doctor what type of exercise program would be best for you. It doesn't have to be difficult. Even brisk walking for 20 minutes three times a week is a good form of exercise. Avoid medicines which contain heart stimulants. This includes many cold and sinus decongestant pills and sprays as well as diet pills. Check the warnings about hypertension on the label. Stimulants such as amphetamine or cocaine could be lethal for someone with hypertension. Never take these. Limit your caffeine intake or switch to caffeine-free products. Stop smoking. If you are a long-time smoker, this can be hard. Enroll in a stop-smoking program to improve your chance of success. Learning how to handle stress better is an important part of any program to lower blood pressure. Learn about relaxation methods such as meditation, yoga or biofeedback. If medicines were prescribed, take them exactly as directed. Missing doses may cause your blood pressure get out of control. Consider buying an automatic blood pressure machine (available at most pharmacies). Use this to monitor your blood pressure at home and report the results to your doctor. Follow Up: Regular visits to your own physician for blood pressure checks and medicine adjustment is an important part of your care. Make a follow-up appointment as directed by our staff. Get Prompt Medical Attention if any of the following occur: Chest pain or shortness of breath Severe headache Throbbing or rushing sound in the ears Nosebleed Sudden severe abdominal pain Extreme drowsiness, confusion or fainting Dizziness or vertigo (dizziness with spinning sensation) Weakness of an arm or leg or one side of the face Difficulty with speech or vision Hypertension, Out Of Control (Established) Your blood pressure was unusually high today. This can occur as a result of missing doses of your blood pressure medicine. Some asthma inhalers, decongestants, diet pills, and street drugs such as cocaine and amphetamine can worsen hypertension. An increase in body weight, increase in salt intake, smoking, and caffeine are other causes. Emotional upset or acute pain can cause a sudden rapid rise in blood pressure which may return to normal after a period of rest. A normal blood pressure is less than 140/90. The first (top) number is the systolic pressure. The second (bottom) number is the diastolic pressure. Hypertension exists when either the top number is 140 or higher, OR the bottom number is 90 or higher on repeated measurements. Home Care: All patients with high blood pressure should do the following to lower their pressure. If you are on blood pressure medicines, then these methods may reduce or eliminate your need for medicines in the future. Begin a weight-loss program if you are overweight. Reduce your salt intake. Avoid high-salt foods (olives, pickles, smoked meats, salted potato chips, etc.). Do not add salt to your food at the table. Use only small amounts of salt when cooking. Begin an exercise program. Discuss with your doctor what type of exercise program would be best for you. It doesnt have to be difficult. Even brisk walking for 20 minutes3 times a week is a good form of exercise. Avoid medicines which contain heart stimulants. This includes many cold and sinus decongestant pills and sprays as well as diet pills. Check the warnings about hypertension on the label. Stimulants such as amphetamine or cocaine could be lethal for someone with hypertension. Never take these. Limit your caffeine intake or switch to decaf. Stop smoking. If you are a long-time smoker, this can be hard. Enroll in a stop-smoking program to improve your chance of success. Talk to your physician about ways to improve your chance of success. Learning how to handle stress better is an important part of any program to lower blood pressure. Learn about relaxation methods such as meditation, yoga, or biofeedback. If medicines were prescribed, take them exactly as directed. Missing doses may cause your blood pressure to get out of control. Consider buying an automatic blood pressure machine (available at many pharmacies). Use this to monitor your blood pressure and report to your doctor. Follow Up: Regular visits to your own doctor for blood pressure checks and medicine adjustment is an important part of your care. Make a follow-up appointment as directed by our staff. Get Prompt Medical Attention if any of the following occur: Chest, arm, shoulder, neck, or upper back pain Shortness of breath Severe headache Throbbing or rushing sound in the ears Nosebleed Extreme drowsiness, confusion, or fainting Dizziness or vertigo (dizziness with spinning sensation) Weakness of an arm or leg or one side of the face Difficulty with speech or vision You have been given the following additional information: COPD Flare Hypertension, Established Hypertension, Established, Out Of Control (Electronically signed by Nik Currie MD 08/04/2016 7:49)
--- NOTE | 2016-08-04 07:51 | ED MED RECONCILIATION SUMMARY ---
Patient: OSMANY COLLAZO Medication Reconciliation Report [facility] VisitID: [id number] [address] [place] [address] 66y, M Registration Date/Time: 08/02/2016 Weight: 113.3 kg Height/Length: 71 in. BMI: 34.9 ALLERGIES: No Known Drug Allergy The patient's Home Medications are listed below: THE FOLLOWING MEDICATIONS NEED TO BE RECONCILED: Lisinopril Oral 5 mg, am Metoprolol Tartrate Oral 100 mg, am Mucinex Oral Omeprazole Oral 20 mg, am Ventolin HFA Inhalation The source(s) of the original Home Medication information: patient The following Medications were given to the patient in the Emergency Department: Duoneb [Neb Tx] Neb TX 1 unit dose, administered: 08/02/2016 10:10:00 AM SOLU-MEDROL [IVP] IVP 125 mg, administered: 08/02/2016 10:41:00 AM IV NS IV Fluids bolus 0, then 150 mL/hr, administered: 08/02/2016 10:55:00 AM Ativan [IVP] IVP 0.5 mg, administered: 08/02/2016 1:17:00 PM Rocephin [IVPB] IVPB bolus 0, then 2 gm 150 mL/hr, administered: 08/02/2016 2:41:00 PM Zithromax [IVPB] IVPB bolus 0, then 500 mg 255 mL/hr, administered: 08/02/2016 4:35:00 PM Hydralazine [IVP] IVP 20 mg, administered: 08/02/2016 5:22:00 PM The following Medications were prescribed to the patient: None.
--- NOTE | 2016-08-04 07:51 | ED MAR SUMMARY ---
..... Medication Administration Record [facility] [address] [place] [address] Patient: OSMANY COLLAZO Visit ID: [id number] 66y, M Weight: 113.3 kg Height/Length: 71 in BMI: 34.9 ALLERGIES: No Known Drug Allergy Given 10:10 08/02/2016 Shelby Almendarez R.N. Medication Administered: DUONEB [NEB TX] (IPRATROPIUM-ALBUTEROL), Dose: 1 unit dose Nebulizer Neb TX. Medication Ordered: DuoNeb Neb Tx 1 unit dose (NOW). Given 10:41 08/02/2016 Shelby Almendarez R.N. Medication Administered: SOLU-MEDROL [IVP] (METHYLPREDNISOLONE SODIUM SUCC), Dose: 125 mg IVP over 2 minute(s), Site: #1 right AC. Medication Ordered: Solu-MEDROL IV 125 mg (NOW). Start 10:55 08/02/2016 Shelby Almendarez R.N. Medication Administered: IV NS (SALINE), Dose: IV Fluids over 5 hour(s), Rate: 150 mL/hr, Dispensed: 1000 mL bag, Site: #1 right AC. Medication Ordered: IV NS : initial bolus none -, then 150 mL/hr for 4h (NOW); Routine. Given 13:17 08/02/2016 Shelby Almendarez R.N. Medication Administered: ATIVAN [IVP] (LORAZEPAM), Dose: 0.5 mg IVP over 30 second(s), Site: #1 right AC. Medication Ordered: Ativan IV 0.5 mg (NOW). Start 14:41 08/02/2016 Marla March RAdin, Stop 15:08/02/2016 Liz Lazo R.N. Medication Administered: ROCEPHIN [IVPB] (CEFTRIAXONE SODIUM), Dose: 2 gm IVPB over 20 minute(s), Rate: 150 mL/hr, Dispensed: 50 mL bag, Site: #1 right AC. Medication Ordered: Rocephin IV 2 gm/50mL (NOW). Start 16:35 08/02/2016 Shelby Almendarez R.N., Stop 17:28 08/02/2016 Shelby Almendarez R.N. Medication Administered: ZITHROMAX [IVPB] (AZITHROMYCIN), Dose: 500 mg IVPB over 1 hour(s), Rate: 255 mL/hr, Dispensed: 255 mL bag, Site: #1 right AC. Medication Ordered: Zithromax IV 500 mg/250 mL (NOW). Given 17:22 08/02/2016 Shelby Almendarez RNinaN. Medication Administered: HYDRALAZINE [IVP], Dose: 20 mg IVP over 5 minute(s), Site: #1 right AC. Medication Ordered: Hydralazine IV 20 mg (NOW).
--- NOTE | 2016-08-04 07:51 | ED MED RECONCILIATION SUMMARY ---
Patient: OSMANY COLLAZO Medication Reconciliation Report [facility] VisitID: [id number] [address] [place] [address] 66y, M Registration Date/Time: 08/02/2016 Weight: 113.3 kg Height/Length: 71 in. BMI: 34.9 ALLERGIES: No Known Drug Allergy The patient's Home Medications are listed below: THE FOLLOWING MEDICATIONS NEED TO BE RECONCILED: Lisinopril Oral 5 mg, am Metoprolol Tartrate Oral 100 mg, am Mucinex Oral Omeprazole Oral 20 mg, am Ventolin HFA Inhalation The source(s) of the original Home Medication information: patient The following Medications were given to the patient in the Emergency Department: Duoneb [Neb Tx] Neb TX 1 unit dose, administered: 08/02/2016 10:10:00 AM SOLU-MEDROL [IVP] IVP 125 mg, administered: 08/02/2016 10:41:00 AM IV NS IV Fluids bolus 0, then 150 mL/hr, administered: 08/02/2016 10:55:00 AM Ativan [IVP] IVP 0.5 mg, administered: 08/02/2016 1:17:00 PM Rocephin [IVPB] IVPB bolus 0, then 2 gm 150 mL/hr, administered: 08/02/2016 2:41:00 PM Zithromax [IVPB] IVPB bolus 0, then 500 mg 255 mL/hr, administered: 08/02/2016 4:35:00 PM Hydralazine [IVP] IVP 20 mg, administered: 08/02/2016 5:22:00 PM The following Medications were prescribed to the patient: None.
--- NOTE | 2016-08-04 07:51 | ED MAR SUMMARY ---
..... Medication Administration Record [facility] [address] [place] [address] Patient: OSMANY COLLAZO Visit ID: [id number] 66y, M Weight: 113.3 kg Height/Length: 71 in BMI: 34.9 ALLERGIES: No Known Drug Allergy Given 10:10 08/02/2016 Shelby Almendarez R.N. Medication Administered: DUONEB [NEB TX] (IPRATROPIUM-ALBUTEROL), Dose: 1 unit dose Nebulizer Neb TX. Medication Ordered: DuoNeb Neb Tx 1 unit dose (NOW). Given 10:41 08/02/2016 Shelby Almendarez R.N. Medication Administered: SOLU-MEDROL [IVP] (METHYLPREDNISOLONE SODIUM SUCC), Dose: 125 mg IVP over 2 minute(s), Site: #1 right AC. Medication Ordered: Solu-MEDROL IV 125 mg (NOW). Start 10:55 08/02/2016 Shelby Almendarez R.N. Medication Administered: IV NS (SALINE), Dose: IV Fluids over 5 hour(s), Rate: 150 mL/hr, Dispensed: 1000 mL bag, Site: #1 right AC. Medication Ordered: IV NS : initial bolus none -, then 150 mL/hr for 4h (NOW); Routine. Given 13:17 08/02/2016 Shelby Almendarez R.N. Medication Administered: ATIVAN [IVP] (LORAZEPAM), Dose: 0.5 mg IVP over 30 second(s), Site: #1 right AC. Medication Ordered: Ativan IV 0.5 mg (NOW). Start 14:41 08/02/2016 Marla March RAdin, Stop 15:08/02/2016 Liz Lazo R.N. Medication Administered: ROCEPHIN [IVPB] (CEFTRIAXONE SODIUM), Dose: 2 gm IVPB over 20 minute(s), Rate: 150 mL/hr, Dispensed: 50 mL bag, Site: #1 right AC. Medication Ordered: Rocephin IV 2 gm/50mL (NOW). Start 16:35 08/02/2016 Shelby Almendarez R.N., Stop 17:28 08/02/2016 Shelby Almendarez R.N. Medication Administered: ZITHROMAX [IVPB] (AZITHROMYCIN), Dose: 500 mg IVPB over 1 hour(s), Rate: 255 mL/hr, Dispensed: 255 mL bag, Site: #1 right AC. Medication Ordered: Zithromax IV 500 mg/250 mL (NOW). Given 17:22 08/02/2016 Shelby Almendarez RNinaN. Medication Administered: HYDRALAZINE [IVP], Dose: 20 mg IVP over 5 minute(s), Site: #1 right AC. Medication Ordered: Hydralazine IV 20 mg (NOW).
--- NOTE | 2016-08-04 09:05 | NUR ---
OXYGEN WEANED DOWN TO 1L NC. SATS 91-95%. WITH ACTIVITY, SATS DROPPED TO 87% AND PT NOTED TO BE SOB. RECOVERED TO LOW 90'S WITHIN ABOUT 1 MINUTE.
[2016-08-04 11:59] VITALS: BP 126/80
[2016-08-04 14:49] VITALS: BP 129/63
--- NOTE | 2016-08-04 14:52 | Progress Note ---
Late Entry Date/Time Late Entry Date and Time LATE ENTRY Date of visit: Time of visit: Subjective General Patient continues to have cough. nonproductive per patietn, but sounds wet. No chest pain, nausea, vomitting, diarrhea, constipation, abdominal pain. Breathing is improving. Physical Exam Vital Signs / I&Os Vital Signs Date Time Temp Pulse Resp B/P Pulse O2 O2 Flow FiO2 Ox Delivery Rate 08/04 1200 36.7 96 Nasal 3.0 Cannula 08/04 1159 91 18 126/80 92 Nasal 3.0 Cannula 08/04 1158 89 18 82 Room Air 0.0 08/04 0911 91 Room Air 08/04 0901 153/91 08/04 0739 Nasal 2.0 Cannula 08/04 0658 36.4 89 18 153/91 97 Nasal 3.0 Cannula 08/04 0404 3.0 08/04 0228 36.7 75 19 150/85 95 Nasal 3.0 Cannula 08/04 0007 3.0 08/03 2216 Nasal 3.0 Cannula 08/03 2155 36.6 85 21 150/65 97 Nasal 3.0 Cannula 08/03 2132 132/62 08/03 1917 3.0 08/03 1833 36.9 80 20 132/62 96 Nasal 3.0 Cannula 08/03 1800 73 20 97 2.0 08/03 1510 88 24 136/65 96 Nasal 3.0 Cannula I&O 08/04 0000 08/03 1600 08/03 0800 Intake Total 540 1163 400 Output Total 550 0 800 Balance -10 1163 -400 General Appearance Alert, Cooperative, No acute distress Lungs Course diffusely with expiratory wheezing and OK air movement. Cardiovascular Regular rate and rhythm, Normal S1 and S2, No murmurs, gallops, rubs Abdomen Normal bowel sounds, Soft, No tenderness Extremities No edema Assessment and Plan Problem List 1. Acute exacerbation of chronic obstructive pulmonary disease (COPD) Plan Improving on steroids, duonebs, and antibiotics. Will transition to oral steroids. Still desating with minimal walking and at night. will monitor one more day.
--- NOTE | 2016-08-04 14:59 | NUR ---
PATIENT DENIES SOB AT REST. O2 SATS 90-95% ON ROOM AIR AT REST. WHEN UP AMBULATING, DESATURATED TO 82%. NASAL CANNULA REPLACED AT 3 LPM AND SATS IMPROVED TO 92% WHILE AMBULATING. REPORT AND CARE TRANSFERRED TO ZACK HERNANDEZ.
[2016-08-04 18:56] VITALS: BP 125/76
--- NOTE | 2016-08-04 19:13 | NUR ---
A&OX3, LS COARSE AND DIMNISHED IN BASES, TELE IS NSR IN THE 80'S AND BT ACTIVE. NO C/O PAIN OR NAUSEA. AMBULATING W/ SBA AND 2L OF O2 AND TOLERATING WELL. 2 IV'S SL'D BUT PATENT. RESTING W/ CALL LIGHT IN REACH.
--- NOTE | 2016-08-05 | NUR ---
RESTING IN BED, O2 @ 2L PER NC. DENIES ANY DISCOMFORT AT THIS TIME.
[2016-08-05 02:42] VITALS: BP 154/95
[2016-08-05 06:34] VITALS: BP 163/98
[2016-08-05] MEDS ORDERED: IPRATROPIUM BROMIDE/ IN (09:34)
[2016-08-05] MEDS ORDERED: MAG-OX 400400 MG PO (09:34)
[2016-08-05] MEDS ORDERED: CEFUROXIME AXE250 MG PO (09:34)
[2016-08-05] MEDS ORDERED: PREDNISONE20 MG PO (09:34)
--- NOTE | 2016-08-05 09:36 | Provider's Discharge Care Plan ---
Problem, Goal, Plan Problem List 1. Hypertension Goals: Improved health/wellness, Therapeutic intervention Instructions: Follow up as directed, Take meds as directed 2. Hypomagnesemia Goals: Improved health/wellness, Therapeutic intervention Instructions: Follow up as directed, Take meds as directed 3. Acute exacerbation of chronic obstructive pulmonary disease (COPD) Goals: Improved health/wellness Instructions: Follow up as directed, Increase activity level, Take meds as directed
[2016-08-05] MEDS ORDERED: PRINIVIL5 MG PO (09:39)
[2016-08-05 10:38] VITALS: BP 121/71
--- NOTE | 2016-08-05 11:30 | NUR ---
1035- dishcarge education completed. pt given written and verbal instructions. vss. pt is stable and dc to home with family. iv sites removed intact.
--- NOTE | 2016-08-05 14:53 | DISCHARGE SUMMARY ---
ADMIT DATE: 08/02/2016 DISCHARGE DATE: 08/05/2016 ADMISSION DIAGNOSES: 1. Chronic obstructive pulmonary disease exacerbation 2. Bronchitis 3. Hypertension DISCHARGE DIAGNOSES: 1. Chronic obstructive pulmonary disease exacerbation, improving 2. Bronchitis, improving 3. Hypomagnesemia, replacing 4. Hypokalemia, replaced BRIEF HISTORY: This is a 66-year-old male with past medical history of CVA and hypertension presenting with complaints of 1 week of shortness of breath, not improving with his medications. The patient had been in his usual state of health when he developed what he thought was a cold 1 month prior to admission. He is able to fight the cold and improve. However, in the past week he noticed his cold symptoms were returning and he was having an increased level of difficulty breathing. The patient's medications did not working anymore, and the patient became worried and came to the emergency department. HOSPITAL COURSE: The patient was admitted to the hospital and was treated on steroids, nebulizers, and antibiotics. He gradually improved over the ensuing days and very adamantly wanted to go home on the day of discharge. At this time, he was still on oxygen when he was up moving around or sleeping, but was able to be stationary without being hypoxic. I expect he will be able to completely wean off oxygen, except for when he is sleeping in the future. PHYSICAL EXAMINATION: At the time of discharge, blood pressure is 121/71, pulse is 82, respiratory rate is 18, O2 saturation is 96% on 2 liters, T-max is 36.6 degrees Celsius. This is a well-appearing male sitting in bed, in no apparent distress. Head is atraumatic, normocephalic. Trachea is midline. Lungs have mild expiratory wheezing diffusely, significant improvement in coarse lung sounds. Heart: S1, S2, regular rate and rhythm. No S3, S4, gallops, or rubs. There is a 2/6 systolic murmur, increased at the base. Heart sounds are diminished. Abdomen is soft, nontender, nondistended, without hepatosplenomegaly or masses. Bowel sounds are active. There is trace bilateral lower extremity edema. DISCHARGE INSTRUCTIONS/MEDICATIONS: Prednisone 60 mg p.o. daily x3 days, then 40 mg p.o. daily x3 days, then 20 mg p.o. daily x3 days. Cefuroxime 500 mg p.o. b.i.d. Jezb 3 mL inhaled q.6 hours p.r.n. Magnesium oxide 400 mg p.o. b.i.d. x3 days. Albuterol HFA 2 puffs q.4 hours p.r.n. wheezing. Omeprazole 20 mg p.o. at bedtime. Metoprolol XL 100 mg p.o. b.i.d. Advair Diskus 250/50, one puff inhaled b.i.d. Lisinopril 40 mg p.o. daily. The patient was instructed to follow up with his primary care provider within 2 days. Diet: Cardiac diet. Activity: Up ad. lon. No strenuous activity until followup.
== END 2016-08-05 10:35 | disposition home or self-care (01) | DRG 192 ==
LOC: ED SRH 09:39 → TRANS SRH 16:19 → CC SRH 18:31 → ACUTE2 SRH 18:32 → CC SRH 08-03 17:16 → ACUTE2 SRH 08-04 15:40
PROVIDERS: ADMIT Emergency Medicine
DX: J44.1 Chronic obstructive pulmonary disease with (acute) exacerbation (principal); J40 Bronchitis, not specified as acute or chronic; R09.02 Hypoxemia; E83.42 Hypomagnesemia; E87.6 Hypokalemia; I10 Essential (primary) hypertension; Z86.73 Personal history of transient ischemic attack (TIA), and cerebral infarction without residual deficits
CPT/HCPCS: 85241; 90047; 90065; 90074; 90100; 90616; 91320; 91400; 91556; 91672; 92031; 92132; 92610; 92720; 93004; 93140; 95059